=== PATIENT | female | born 1930 | race Caucasian/White ===

== ENCOUNTER 2017-10-13 08:09 | Inpatient (IN) | payer MEDICARE, OTHER ==
[~2017-10-13] VITALS: Ht 172.7 cm; Wt 75.0 kg
[2017-10-13] MEDS ORDERED: normal saline 1000ML IV soln IV ONE (08:55)
[2017-10-13] MEDS ORDERED: pantoprazole IV 80 MG in normal saline 100ml IV soln 100 ML IV ONE (08:55)
[2017-10-13] MEDS ORDERED: ondansetron/PF 4mg/2ml inj IV ONE (08:55)
[2017-10-13 09:32] LABS: BASOPHILS % (AUTO) 0.3 % (0-1); EOSINOPHILS # (AUTO) 0.2 X10'3 (0-0.9); EOSINOPHILS % (AUTO) 1.9 % (0-6); HEMATOCRIT 29.6 % (35.0-45.0); LYMPHOCYTES # (AUTO) 0.8 X10'3 (1.1-4.8); LYMPHOCYTES % (AUTO) 9.8 % (21-51); MEAN CORPUSCULAR HEMOGLOBIN 29.8 PG (27.0-31.0); MEAN CORPUSCULAR HGB CONC 33.8 % (33.0-36.5); MEAN CORPUSCULAR VOLUME 88.1 FL (78-98); MEAN PLATELET VOLUME 8.5 FL (7.4-10.4); MONOCYTES # (AUTO) 0.5 X10'3 (0-0.9); MONOCYTES % (AUTO) 5.4 % (2-12); NEUTROPHILS # (AUTO) 6.9 X10'3 (1.8-7.7); NEUTROPHILS % (AUTO) 82.6 % (42-75); PLATELET COUNT 305 X10'3 (140-440); RED BLOOD COUNT 3.36 X10'6 (4.20-5.60); RED CELL DISTRIBUTION WIDTH 13.9 % (11.5-14.5); WHITE BLOOD COUNT 8.3 X10'3 (4.5-11.0)
[2017-10-13 09:38] LABS: PARTIAL THROMBOPLASTIN TIME 22 SECONDS (22-32); PROTHROMBIN TIME 10.3 SECONDS (9.0-12.0)
[2017-10-13 09:42] LABS: ALANINE AMINOTRANSFERASE 22 U/L (12-78); ALBUMIN 3.5 G/DL (3.4-5.0); ALBUMIN/GLOBULIN RATIO 1.1 (1.1-1.5); ALKALINE PHOSPHATASE 50 IU/L (46-116); ANION GAP 9 (8-16); ASPARTATE AMINO TRANSFERASE 18 U/L (10-37); BILIRUBIN,TOTAL 0.7 MG/DL (0.1-1.0); BLOOD UREA NITROGEN 25 MG/DL (7-18); BUN/CREATININE RATIO 23.4 (6.6-38.0); CHLORIDE 103 MMOL/L (99-107); CREATININE 1.07 MG/DL (0.40-0.90); GLUCOSE 137 MG/DL (70-104); SODIUM 139 MMOL/L (135-145); TOTAL CARBON DIOXIDE 27.5 MMOL/L (24-32); TOTAL PROTEIN 6.6 G/DL (6.4-8.2); eGFR 49 ML/MIN
[2017-10-13 10:26] LABS: CLARITY,URINE CLEAR (Clear); COLOR,URINE STRAW (Yellow); GLUCOSE, URINE NEGATIVE (Neg); KETONES,URINE NEGATIVE (Neg); LEUKOCYTE ESTERASE ,URINE NEGATIVE (Neg); NITRITES, URINE NEGATIVE (Neg); OCCULT BLOOD,URINE NEGATIVE (Neg); PH,URINE 5.5 (4.8-8.0); PROTEIN,URINE NEGATIVE (Neg); UROBILINOGEN,URINE 0.2 E.U/dL (0.2-1.0)
[2017-10-13 10:27] LABS: UA COLLECTION TYPE STRAIGHT CATH
[2017-10-13] MEDS ORDERED: pantoprazole 40MG/NS 100ML BAG 100 ML IV ONE (10:30)
[2017-10-13] MEDS ORDERED: ondansetron/PF 4mg/2ml inj IV PRN (10:35)
[2017-10-13] MEDS ORDERED: magnesium Cl slow-release 64mg tablet PO PRN (10:35)
[2017-10-13] MEDS ORDERED: magnesium 2GM in 50ml NS 50 ML IV PRN (10:35)
[2017-10-13] MEDS ORDERED: potassium Cl 40MEQ/NS 500ml 500 ML IV PRN ×2 (10:35)
[2017-10-13] MEDS ORDERED: magnesium 4gm in 100ml NS 100 ML IV PRN (10:35)
[2017-10-13] MEDS ORDERED: potassium Cl 20 mEq SR tablet PO PRN ×2 (10:35)
[2017-10-13] MEDS ORDERED: pantoprazole 40MG/NS 100ML BAG 100 ML IV SCH (11:00)
[2017-10-13] MEDS ORDERED: NAPR-56 PO (11:51)
[2017-10-13] MEDS ORDERED: TIZA2TAB4 PO (11:52)
[2017-10-13] MEDS: pantoprazole IV 80 MG in dextrose 5%-water 100 ML IV SCH ×2 (13:30→22:00)
[2017-10-13] MEDS: sodium chloride 0.45% 1,000 ML IV SCH ×2 (13:38→22:01)
[2017-10-13 14:52] LABS: OCCULT BLOOD STOOL POSITIVE (Neg)
[2017-10-13 17:24] LABS: HEMATOCRIT 24.4 % (35.0-45.0); HEMOGLOBIN 8.4 g/dl (12.0-16.0); MEAN CORPUSCULAR HEMOGLOBIN 30.4 PG (27.0-31.0); MEAN CORPUSCULAR HGB CONC 34.4 % (33.0-36.5); MEAN CORPUSCULAR VOLUME 88.4 FL (78-98); MEAN PLATELET VOLUME 8.3 FL (7.4-10.4); PLATELET COUNT 297 X10'3 (140-440); RED BLOOD COUNT 2.76 X10'6 (4.20-5.60); RED CELL DISTRIBUTION WIDTH 14.6 % (11.5-14.5); WHITE BLOOD COUNT 10.7 X10'3 (4.5-11.0)
[2017-10-14] VITALS (8 sets, daily range): BP systolic 119–157; BP diastolic 58–80
[2017-10-14] MEDS: acetaminophen 325mg tablet PO PRN
[2017-10-14] MEDS ORDERED: Melatonin 3mg tablet PO PRN (00:10)
[2017-10-14] MEDS ORDERED: MORPHINE 2MG in 2ml NS syringe IV PRN (00:10)
[2017-10-14 06:24] LABS: BASOPHILS % (AUTO) 0.3 % (0-1); EOSINOPHILS # (AUTO) 0.4 X10'3 (0-0.9); EOSINOPHILS % (AUTO) 5.9 % (0-6); HEMOGLOBIN 7.4 g/dl (12.0-16.0); LYMPHOCYTES % (AUTO) 14.9 % (21-51); MEAN CORPUSCULAR HEMOGLOBIN 30.3 PG (27.0-31.0); MEAN CORPUSCULAR HGB CONC 34.3 % (33.0-36.5); MEAN CORPUSCULAR VOLUME 88.2 FL (78-98); MEAN PLATELET VOLUME 8.2 FL (7.4-10.4); MONOCYTES # (AUTO) 0.6 X10'3 (0-0.9); MONOCYTES % (AUTO) 8.7 % (2-12); NEUTROPHILS # (AUTO) 4.8 X10'3 (1.8-7.7); NEUTROPHILS % (AUTO) 70.2 % (42-75); PLATELET COUNT 241 X10'3 (140-440); RED BLOOD COUNT 2.44 X10'6 (4.20-5.60); RED CELL DISTRIBUTION WIDTH 14.3 % (11.5-14.5); WHITE BLOOD COUNT 6.9 X10'3 (4.5-11.0)
[2017-10-14 06:36] LABS: HEMATOCRIT 21.5 % (35.0-45.0)
[2017-10-14 06:40] LABS: ALBUMIN 2.9 G/DL (3.4-5.0); ANION GAP 8 (8-16); BLOOD UREA NITROGEN 22 MG/DL (7-18); BUN/CREATININE RATIO 23.4 (6.6-38.0); CALCIUM 8.6 MG/DL (8.5-10.1); CHLORIDE 108 MMOL/L (99-107); CREATININE 0.94 MG/DL (0.40-0.90); GLUCOSE 116 MG/DL (70-104); MAGNESIUM 1.9 MG/DL (1.5-2.4); POTASSIUM 4.7 MMOL/L (3.5-5.1); SODIUM 141 MMOL/L (135-145); TOTAL CARBON DIOXIDE 25.4 MMOL/L (24-32); eGFR 57 ML/MIN
[2017-10-14] MEDS: K and/or MAG REPLACEMENT MC SCH (08:00)
[2017-10-14] MEDS ORDERED: LORazepam 2 mg/ml vial IV ONE (08:00)
[2017-10-14] MEDS: sodium chloride 0.45% 1,000 ML IV SCH ×2 (08:42→21:04)
[2017-10-14] MEDS: pantoprazole IV 80 MG in dextrose 5%-water 100 ML IV SCH (08:42)
[2017-10-14] MEDS ORDERED: LORazepam 2 mg/ml vial IV PRN (08:50)
[2017-10-14 13:17] LABS: BASOPHILS % (AUTO) 0.3 % (0-1); EOSINOPHILS # (AUTO) 0.3 X10'3 (0-0.9); EOSINOPHILS % (AUTO) 3.3 % (0-6); HEMATOCRIT 22.2 % (35.0-45.0); HEMOGLOBIN 7.6 g/dl (12.0-16.0); LYMPHOCYTES # (AUTO) 1.3 X10'3 (1.1-4.8); LYMPHOCYTES % (AUTO) 15.3 % (21-51); MEAN CORPUSCULAR HEMOGLOBIN 30.3 PG (27.0-31.0); MEAN CORPUSCULAR HGB CONC 34.3 % (33.0-36.5); MEAN CORPUSCULAR VOLUME 88.3 FL (78-98); MEAN PLATELET VOLUME 8.4 FL (7.4-10.4); MONOCYTES # (AUTO) 0.7 X10'3 (0-0.9); MONOCYTES % (AUTO) 8.9 % (2-12); NEUTROPHILS % (AUTO) 72.2 % (42-75); PLATELET COUNT 250 X10'3 (140-440); RED BLOOD COUNT 2.52 X10'6 (4.20-5.60); RED CELL DISTRIBUTION WIDTH 14.8 % (11.5-14.5); WHITE BLOOD COUNT 8.3 X10'3 (4.5-11.0)
[2017-10-14] MEDS ORDERED: NO HOME MEDS (13:32)
[2017-10-14] MEDS ORDERED: MIDAZolam 5mg/5ml vial ONE (17:19)
[2017-10-14] MEDS ORDERED: LIDOcaine Viscous 15ml cup ONE (17:19)
[2017-10-14] MEDS ORDERED: fentaNYL/PF 50MCG/1 ML 2ML syringe ONE (17:19)
[2017-10-14] MEDS ORDERED: PEG 3350/Na sulf,bicarb,Cl/KCl oral sol 4 liter bottle PO ONE (19:20)
[2017-10-14] MEDS ORDERED: bisacodyl 5mg tablet.DR PO PRN (19:20)
[2017-10-14] MEDS: pantoprazole IV 80 MG in normal saline 100ml IV soln 100 ML IV SCH ×2 (21:04→23:21)
[2017-10-15] VITALS (9 sets, daily range): BP systolic 137–165; BP diastolic 60–83
[2017-10-15] MEDS: sodium chloride 0.45% 1,000 ML IV SCH ×3 (02:35→14:03)
[2017-10-15 06:35] LABS: BASOPHILS % (AUTO) 0.3 % (0-1); EOSINOPHILS # (AUTO) 0.4 X10'3 (0-0.9); EOSINOPHILS % (AUTO) 4.4 % (0-6); HEMOGLOBIN 7.2 g/dl (12.0-16.0); LYMPHOCYTES # (AUTO) 1.2 X10'3 (1.1-4.8); LYMPHOCYTES % (AUTO) 13.9 % (21-51); MEAN CORPUSCULAR HEMOGLOBIN 30.3 PG (27.0-31.0); MEAN CORPUSCULAR VOLUME 89.1 FL (78-98); MEAN PLATELET VOLUME 8.6 FL (7.4-10.4); MONOCYTES # (AUTO) 0.6 X10'3 (0-0.9); MONOCYTES % (AUTO) 7.6 % (2-12); NEUTROPHILS # (AUTO) 6.2 X10'3 (1.8-7.7); NEUTROPHILS % (AUTO) 73.8 % (42-75); PLATELET COUNT 238 X10'3 (140-440); RED BLOOD COUNT 2.37 X10'6 (4.20-5.60); RED CELL DISTRIBUTION WIDTH 14.3 % (11.5-14.5); WHITE BLOOD COUNT 8.4 X10'3 (4.5-11.0)
[2017-10-15 06:46] LABS: ANION GAP 9 (8-16); BLOOD UREA NITROGEN 18 MG/DL (7-18); BUN/CREATININE RATIO 21.2 (6.6-38.0); CALCIUM 8.6 MG/DL (8.5-10.1); CHLORIDE 108 MMOL/L (99-107); CREATININE 0.85 MG/DL (0.40-0.90); GLUCOSE 108 MG/DL (70-104); MAGNESIUM 1.9 MG/DL (1.5-2.4); POTASSIUM 3.5 MMOL/L (3.5-5.1); SODIUM 143 MMOL/L (135-145); TOTAL CARBON DIOXIDE 26.1 MMOL/L (24-32); eGFR 64 ML/MIN
[2017-10-15 06:53] LABS: HEMATOCRIT 21.1 % (35.0-45.0)
[2017-10-15] MEDS: K and/or MAG REPLACEMENT MC SCH (07:39)
[2017-10-15] MEDS: acetaminophen 325mg tablet PO PRN ×2 (08:12→13:58)
[2017-10-15] MEDS ORDERED: LORazepam 2 mg/ml vial IV ONE (09:50)
[2017-10-15] MEDS: pantoprazole IV 80 MG in normal saline 100ml IV soln 100 ML IV SCH (10:19)
[2017-10-15 13:04] LABS: BASOPHILS % (AUTO) 0 % (0-1); EOSINOPHILS # (AUTO) 0.3 X10'3 (0-0.9); EOSINOPHILS % (AUTO) 2.7 % (0-6); HEMATOCRIT 23.3 % (35.0-45.0); LYMPHOCYTES # (AUTO) 1.3 X10'3 (1.1-4.8); LYMPHOCYTES % (AUTO) 11.7 % (21-51); MEAN CORPUSCULAR HEMOGLOBIN 30.4 PG (27.0-31.0); MEAN CORPUSCULAR HGB CONC 34.4 % (33.0-36.5); MEAN CORPUSCULAR VOLUME 88.2 FL (78-98); MEAN PLATELET VOLUME 8.4 FL (7.4-10.4); MONOCYTES # (AUTO) 0.8 X10'3 (0-0.9); MONOCYTES % (AUTO) 7.1 % (2-12); NEUTROPHILS # (AUTO) 8.7 X10'3 (1.8-7.7); NEUTROPHILS % (AUTO) 78.5 % (42-75); PLATELET COUNT 292 X10'3 (140-440); RED BLOOD COUNT 2.64 X10'6 (4.20-5.60); RED CELL DISTRIBUTION WIDTH 14.3 % (11.5-14.5); WHITE BLOOD COUNT 11.1 X10'3 (4.5-11.0)
[2017-10-15] MEDS ORDERED: MIDAZolam 5mg/5ml vial ONE (16:43)
[2017-10-15] MEDS ORDERED: fentaNYL/PF 50MCG/1 ML 2ML syringe ONE ×2 (16:43→19:06)
[2017-10-16] VITALS (14 sets, daily range): BP systolic 126–176; BP diastolic 67–85
[2017-10-16] MEDS: pantoprazole IV 80 MG in normal saline 100ml IV soln 100 ML IV SCH (01:12)
[2017-10-16] MEDS: sodium chloride 0.45% 1,000 ML IV SCH (05:24)
[2017-10-16 05:45] LABS: BASOPHILS % (AUTO) 0.3 % (0-1); EOSINOPHILS # (AUTO) 0.3 X10'3 (0-0.9); EOSINOPHILS % (AUTO) 2.3 % (0-6); HEMOGLOBIN 7.3 g/dl (12.0-16.0); LYMPHOCYTES # (AUTO) 0.9 X10'3 (1.1-4.8); LYMPHOCYTES % (AUTO) 6.9 % (21-51); MEAN CORPUSCULAR HEMOGLOBIN 30.2 PG (27.0-31.0); MEAN CORPUSCULAR HGB CONC 34.1 % (33.0-36.5); MEAN CORPUSCULAR VOLUME 88.5 FL (78-98); MEAN PLATELET VOLUME 8.4 FL (7.4-10.4); MONOCYTES # (AUTO) 0.9 X10'3 (0-0.9); MONOCYTES % (AUTO) 6.8 % (2-12); NEUTROPHILS # (AUTO) 10.5 X10'3 (1.8-7.7); NEUTROPHILS % (AUTO) 83.7 % (42-75); PLATELET COUNT 255 X10'3 (140-440); RED BLOOD COUNT 2.42 X10'6 (4.20-5.60); RED CELL DISTRIBUTION WIDTH 14.1 % (11.5-14.5); WHITE BLOOD COUNT 12.6 X10'3 (4.5-11.0)
[2017-10-16 05:53] LABS: HEMATOCRIT 21.4 % (35.0-45.0)
[2017-10-16 06:05] LABS: ALBUMIN 3.1 G/DL (3.4-5.0); ANION GAP 11 (8-16); BLOOD UREA NITROGEN 7 MG/DL (7-18); BUN/CREATININE RATIO 8.9 (6.6-38.0); CALCIUM 8.5 MG/DL (8.5-10.1); CHLORIDE 105 MMOL/L (99-107); CREATININE 0.79 MG/DL (0.40-0.90); GLUCOSE 110 MG/DL (70-104); MAGNESIUM 1.6 MG/DL (1.5-2.4); SODIUM 143 MMOL/L (135-145); eGFR 69 ML/MIN
[2017-10-16] MEDS: K and/or MAG REPLACEMENT MC SCH (08:12)
[2017-10-16] MEDS ORDERED: furosemide 20 MG/2 ML vial IV ONE (08:55)
[2017-10-16] MEDS: ipratropium/albuterol 3ml nebule NEB SCH ×4 (11:12→23:20)
[2017-10-16] MEDS: acetaminophen 325mg tablet PO PRN (14:42)
[2017-10-16] MEDS ORDERED: magnesium 4gm in 100ml NS 100 ML IV PRN (14:55)
[2017-10-16] MEDS ORDERED: potassium Cl 40MEQ/NS 500ml 500 ML IV PRN ×2 (14:55)
[2017-10-16] MEDS ORDERED: potassium Cl 20 mEq SR tablet PO PRN (14:55)
[2017-10-16] MEDS ORDERED: magnesium 2GM in 50ml NS 50 ML IV PRN (14:55)
[2017-10-16] MEDS ORDERED: magnesium Cl slow-release 64mg tablet PO PRN (14:55)
[2017-10-16] MEDS: potassium Cl 20 mEq SR tablet PO PRN ×2 (15:06→19:39)
[2017-10-17] MEDS: ipratropium/albuterol 3ml nebule NEB SCH ×3 (02:57→12:48)
[2017-10-17 06:00] VITALS: BP 139/67
[2017-10-17 06:22] LABS: ALBUMIN 2.9 G/DL (3.4-5.0); ANION GAP 9 (8-16); BLOOD UREA NITROGEN 8 MG/DL (7-18); BUN/CREATININE RATIO 8.6 (6.6-38.0); CALCIUM 8.7 MG/DL (8.5-10.1); CHLORIDE 105 MMOL/L (99-107); CREATININE 0.93 MG/DL (0.40-0.90); GLUCOSE 149 MG/DL (70-104); MAGNESIUM 1.6 MG/DL (1.5-2.4); POTASSIUM 3.7 MMOL/L (3.5-5.1); SODIUM 140 MMOL/L (135-145); TOTAL CARBON DIOXIDE 26.4 MMOL/L (24-32); eGFR 57 ML/MIN
[2017-10-17 06:25] LABS: BASOPHILS % (AUTO) 0.2 % (0-1); EOSINOPHILS # (AUTO) 0.3 X10'3 (0-0.9); EOSINOPHILS % (AUTO) 2.4 % (0-6); HEMATOCRIT 25.3 % (35.0-45.0); HEMOGLOBIN 8.8 g/dl (12.0-16.0); LYMPHOCYTES # (AUTO) 0.9 X10'3 (1.1-4.8); LYMPHOCYTES % (AUTO) 6.9 % (21-51); MEAN CORPUSCULAR HEMOGLOBIN 30.6 PG (27.0-31.0); MEAN CORPUSCULAR HGB CONC 34.8 % (33.0-36.5); MEAN CORPUSCULAR VOLUME 87.8 FL (78-98); MEAN PLATELET VOLUME 8.3 FL (7.4-10.4); MONOCYTES # (AUTO) 0.9 X10'3 (0-0.9); MONOCYTES % (AUTO) 7.4 % (2-12); NEUTROPHILS # (AUTO) 10.6 X10'3 (1.8-7.7); NEUTROPHILS % (AUTO) 83.1 % (42-75); PLATELET COUNT 269 X10'3 (140-440); RED BLOOD COUNT 2.88 X10'6 (4.20-5.60); RED CELL DISTRIBUTION WIDTH 14.6 % (11.5-14.5); WHITE BLOOD COUNT 12.8 X10'3 (4.5-11.0)
[2017-10-17] MEDS: K and/or MAG REPLACEMENT MC SCH (08:00)
[2017-10-17] MEDS: acetaminophen 325mg tablet PO PRN (08:43)
[2017-10-17 10:00] VITALS: BP 166/74
[2017-10-17] MEDS ORDERED: cyclobenzaprine 10mg tablet PO ONE (12:40)
[2017-10-17] MEDS ORDERED: IPRA4AER IH (13:17)
== END 2017-10-17 16:30 | disposition home or self-care (01) | DRG 378 ==
LOC: ER 08:09 → ED HOLD 10:35 → ORTHO 4S 10-14 14:03
PROVIDERS: ADMIT Internal Medicine; ATTEND Emergency Medicine
PROC: 0DB68ZX Excision of Stomach, Via Natural or Artificial Opening Endoscopic, Diagnostic (ICD-10-PCS; principal; 2017-10-14)
PROC: 0DJD8ZZ Inspection of Lower Intestinal Tract, Via Natural or Artificial Opening Endoscopic (ICD-10-PCS; 2017-10-15)
PROC: 30233N1 Transfusion of Nonautologous Red Blood Cells into Peripheral Vein, Percutaneous Approach (ICD-10-PCS; 2017-10-16)
DX: K57.31 Diverticulosis of large intestine without perforation or abscess with bleeding (principal); D62 Acute posthemorrhagic anemia; J44.9 Chronic obstructive pulmonary disease, unspecified; K29.71 Gastritis, unspecified, with bleeding; E87.6 Hypokalemia; Z60.2 Problems related to living alone; M62.838 Other muscle spasm; K44.9 Diaphragmatic hernia without obstruction or gangrene; Z87.891 Personal history of nicotine dependence; Z90.710 Acquired absence of both cervix and uterus
CPT/HCPCS: 36415; 43239; 45378; 71045; 74176; 80048; 80053; 81003; 82272; 83735; 85025; 85027; 85610; 85730; 86885; 86900; 86901; 86920; 87070; 88305; 88342; 93306; 94640; 94760; 96365; 96375; 99285; A4310; A4344; A4620; A6449; C9113; G0500; J1940; J2060; J2250; J2405; J3010; J7030; J7060; P9016

== ENCOUNTER 2017-11-02 11:42 | Emergency (ER) | payer MEDICARE, OTHER ==
[~2017-11-02] VITALS: Ht 172.7 cm; Wt 78.2 kg
[~2017-11-02 11:42] MED LIST: IPRA4AER IH; NO HOME MEDS
[2017-11-02 12:40] LABS: ALBUMIN 3.7 G/DL (3.4-5.0); ALKALINE PHOSPHATASE 59 IU/L (46-116); ANION GAP 10 (8-16); ASPARTATE AMINO TRANSFERASE 15 U/L (10-37); BILIRUBIN,TOTAL 0.5 MG/DL (0.1-1.0); BLOOD UREA NITROGEN 22 MG/DL (7-18); BUN/CREATININE RATIO 18.3 (6.6-38.0); CALCIUM 9.9 MG/DL (8.5-10.1); CHLORIDE 98 MMOL/L (99-107); GLUCOSE 105 MG/DL (70-104); POTASSIUM 4.4 MMOL/L (3.5-5.1); SODIUM 134 MMOL/L (135-145); TOTAL CARBON DIOXIDE 26.4 MMOL/L (24-32); TOTAL PROTEIN 7.3 G/DL (6.4-8.2); eGFR 43 ML/MIN
[2017-11-02 12:47] LABS: BASOPHILS % (AUTO) 0.4 % (0-1); EOSINOPHILS # (AUTO) 0.2 X10'3 (0-0.9); EOSINOPHILS % (AUTO) 1.8 % (0-6); HEMOGLOBIN 10.8 g/dl (12.0-16.0); LYMPHOCYTES # (AUTO) 1.1 X10'3 (1.1-4.8); LYMPHOCYTES % (AUTO) 13.2 % (21-51); MEAN CORPUSCULAR HEMOGLOBIN 29.9 PG (27.0-31.0); MEAN CORPUSCULAR HGB CONC 33.6 % (33.0-36.5); MEAN PLATELET VOLUME 8.4 FL (7.4-10.4); MONOCYTES # (AUTO) 0.8 X10'3 (0-0.9); MONOCYTES % (AUTO) 9.7 % (2-12); NEUTROPHILS # (AUTO) 6.2 X10'3 (1.8-7.7); NEUTROPHILS % (AUTO) 74.9 % (42-75); PLATELET COUNT 404 X10'3 (140-440); RED CELL DISTRIBUTION WIDTH 14.4 % (11.5-14.5); WHITE BLOOD COUNT 8.3 X10'3 (4.5-11.0)
[2017-11-02 13:38] LABS: ALANINE AMINOTRANSFERASE 22 U/L (12-78)
[2017-11-02] MEDS ORDERED: normal saline 1000ML IV soln IVB ONE (14:05)
[2017-11-02] MEDS ORDERED: pantoprazole IV 80 MG in normal saline 100ml IV soln 100 ML IV ONE (14:05)
[2017-11-02 14:33] LABS: CLARITY,URINE CLOUDY (Clear); COLOR,URINE STRAW (Yellow); GLUCOSE, URINE NEGATIVE (Neg); KETONES,URINE NEGATIVE (Neg); LEUKOCYTE ESTERASE ,URINE LARGE (Neg); NITRITES, URINE NEGATIVE (Neg); OCCULT BLOOD,URINE SMALL (Neg); PROTEIN,URINE TRACE mg/dl (Neg); UROBILINOGEN,URINE 0.2 E.U/dL (0.2-1.0)
[2017-11-02 14:34] LABS: UA COLLECTION TYPE CLN CATCH MIDSTREAM
[2017-11-02] MEDS: pantoprazole 40MG/NS 100ML BAG 100 ML IV SCH ×2 (14:38→15:12)
[2017-11-02 14:44] VITALS: BP 130/64
[2017-11-02 14:44] LABS: HEMATOCRIT 32.2 % (35.0-45.0); HEMOGLOBIN 10.8 g/dl (12.0-16.0); MEAN CORPUSCULAR HEMOGLOBIN 29.9 PG (27.0-31.0); MEAN CORPUSCULAR HGB CONC 33.5 % (33.0-36.5); MEAN CORPUSCULAR VOLUME 89.3 FL (78-98); MEAN PLATELET VOLUME 8.3 FL (7.4-10.4); PLATELET COUNT 399 X10'3 (140-440); RED BLOOD COUNT 3.61 X10'6 (4.20-5.60); RED CELL DISTRIBUTION WIDTH 14.8 % (11.5-14.5); WHITE BLOOD COUNT 8.5 X10'3 (4.5-11.0)
[2017-11-02 14:46] LABS: BACTERIA,URINE 2+ /HPF (Neg); RBC,URINE 0-2 /HPF (0-2); SQUAMOUS EPITHELIAL CELL,UR MODERATE /LPF (FEW); WBC,URINE TNTC /HPF (0-4)
[2017-11-02 14:47] LABS: MUCUS STRANDS NONE SEEN /LPF (Neg)
[2017-11-02] MEDS ORDERED: BACDS PO (14:52)
[2017-11-02] MEDS ORDERED: sulfamethoxazole/trimethoprim DS (800/160mg) tablet PO ONE (14:55)
== END 2017-11-02 22:39 | disposition home or self-care (01) ==
LOC: ER 11:43
DX: N39.0 Urinary tract infection, site not specified (principal); J44.9 Chronic obstructive pulmonary disease, unspecified
CPT/HCPCS: 36415; 80053; 81001; 85025; 85027; 85610; 86885; 86900; 86901; 87077; 87088; 87186; 96365; 99285; C9113; J7030

== ENCOUNTER 2017-11-23 14:27 | Inpatient (IN) | payer MEDICARE, OTHER ==
[~2017-11-23] VITALS: Ht 172.7 cm; Wt 72.0 kg
[~2017-11-23 14:27] MED LIST changes: -IPRA4AER IH
[2017-11-23 15:12] LABS: BASOPHILS % (AUTO) 0.5 % (0-1); EOSINOPHILS # (AUTO) 0.2 X10'3 (0-0.9); HEMATOCRIT 30.6 % (35.0-45.0); HEMOGLOBIN 10.2 g/dl (12.0-16.0); LYMPHOCYTES # (AUTO) 1.3 X10'3 (1.1-4.8); LYMPHOCYTES % (AUTO) 20.3 % (21-51); MEAN CORPUSCULAR HEMOGLOBIN 29.4 PG (27.0-31.0); MEAN CORPUSCULAR HGB CONC 33.4 % (33.0-36.5); MEAN CORPUSCULAR VOLUME 88.1 FL (78-98); MEAN PLATELET VOLUME 7.7 FL (7.4-10.4); MONOCYTES # (AUTO) 0.8 X10'3 (0-0.9); MONOCYTES % (AUTO) 12.5 % (2-12); NEUTROPHILS # (AUTO) 4.2 X10'3 (1.8-7.7); NEUTROPHILS % (AUTO) 63.7 % (42-75); PLATELET COUNT 358 X10'3 (140-440); RED BLOOD COUNT 3.48 X10'6 (4.20-5.60); RED CELL DISTRIBUTION WIDTH 14.9 % (11.5-14.5); WHITE BLOOD COUNT 6.5 X10'3 (4.5-11.0)
[2017-11-23 15:23] LABS: PARTIAL THROMBOPLASTIN TIME 26 SECONDS (22-32)
[2017-11-23 15:26] LABS: ALANINE AMINOTRANSFERASE 20 U/L (12-78); ALBUMIN 3.4 G/DL (3.4-5.0); ALBUMIN/GLOBULIN RATIO 0.9 (1.1-1.5); ALKALINE PHOSPHATASE 62 IU/L (46-116); ANION GAP 7 (8-16); ASPARTATE AMINO TRANSFERASE 17 U/L (10-37); BILIRUBIN,TOTAL 0.4 MG/DL (0.1-1.0); BLOOD UREA NITROGEN 18 MG/DL (7-18); BUN/CREATININE RATIO 18.9 (6.6-38.0); CALCIUM 9.5 MG/DL (8.5-10.1); CHLORIDE 99 MMOL/L (99-107); CREATININE 0.95 MG/DL (0.40-0.90); GLUCOSE 97 MG/DL (70-104); POTASSIUM 3.9 MMOL/L (3.5-5.1); SODIUM 135 MMOL/L (135-145); TOTAL CARBON DIOXIDE 28.9 MMOL/L (24-32); eGFR 56 ML/MIN
[2017-11-23] MEDS ORDERED: aspirin 81mg tab.chew PO ONE ×2 (16:10→16:15)
[2017-11-23] MEDS ORDERED: ondansetron/PF 4mg/2ml inj IV PRN (16:25)
[2017-11-23] MEDS ORDERED: mag hydrox/Alum hydrox/simeth 30ml oral suspension PO PRN (16:25)
[2017-11-23] MEDS ORDERED: acetaminophen 325mg tablet PO PRN (16:25)
[2017-11-23] MEDS ORDERED: morphine 4 MG/ML inj SYRINge IV PRN ×2 (16:25)
[2017-11-23 17:22] LABS: D-DIMER 1.59 MG/L FEU (0-0.50)
[2017-11-23] MEDS: CefTRIAXone/D5W-Rocephin 1gm 50 ML IV SCH (18:24)
[2017-11-23 19:24] LABS: CLARITY,URINE Turbid (Clear); COLOR,URINE Yellow (Yellow); GLUCOSE, URINE Negative (Neg); KETONES,URINE Negative (Neg); LEUKOCYTE ESTERASE ,URINE Large (Neg); NITRITES, URINE Negative (Neg); OCCULT BLOOD,URINE Small (Neg); PROTEIN,URINE Trace mg/dl (Neg); UROBILINOGEN,URINE 0.2 E.U/dL (0.2-1.0)
[2017-11-23 19:26] LABS: UA COLLECTION TYPE CLN CATCH MIDSTREAM
[2017-11-23 19:42] LABS: BACTERIA,URINE 4+ /HPF (Neg); WBC,URINE TNTC /HPF (0-4)
[2017-11-23 19:43] LABS: SQUAMOUS EPITHELIAL CELL,UR NONE SEEN /LPF (FEW)
[2017-11-23 20:00] VITALS: BP 169/80
[2017-11-23] MEDS ORDERED: hydrALAZINE 20mg/ml inj. IV PRN (20:55)
[2017-11-23] MEDS: magnesium hydroxide 30ml (MOM) UD suspension PO PRN (21:07)
[2017-11-23] MEDS ORDERED: pneumococcal 23-VAL P-sac vacc 25 mcg/0.5ml vial IMVAC ONE (22:15)
[2017-11-23 23:00] VITALS: BP 136/79
[2017-11-24] VITALS (13 sets, daily range): BP systolic 102–164; BP diastolic 61–82
[2017-11-24 03:55] LABS: ALBUMIN 3.5 G/DL (3.4-5.0); ANION GAP 9 (8-16); BLOOD UREA NITROGEN 17 MG/DL (7-18); BUN/CREATININE RATIO 19.1 (6.6-38.0); CALCIUM 9.6 MG/DL (8.5-10.1); CHLORIDE 101 MMOL/L (99-107); CHOL/HDL RATIO 2.9 (0.00-4.99); CHOLESTEROL 194 MG/DL (0-200); CREATININE 0.89 MG/DL (0.40-0.90); GLUCOSE 124 MG/DL (70-104); HDL CHOLESTEROL 66 MG/DL (35-60); LDL CHOLESTEROL 112 MG/DL (50-100); POTASSIUM 4.2 MMOL/L (3.5-5.1); SODIUM 137 MMOL/L (135-145); TOTAL CARBON DIOXIDE 26.8 MMOL/L (24-32); TRIGLYCERIDES 61 MG/DL (20-135); eGFR 60 ML/MIN
[2017-11-24 06:11] LABS: BASOPHILS % (AUTO) 0.3 % (0-1); EOSINOPHILS # (AUTO) 0.2 X10'3 (0-0.9); EOSINOPHILS % (AUTO) 2.9 % (0-6); HEMOGLOBIN 10.6 g/dl (12.0-16.0); LYMPHOCYTES # (AUTO) 1.1 X10'3 (1.1-4.8); LYMPHOCYTES % (AUTO) 15.6 % (21-51); MEAN CORPUSCULAR HEMOGLOBIN 29.6 PG (27.0-31.0); MEAN CORPUSCULAR HGB CONC 33.2 % (33.0-36.5); MEAN CORPUSCULAR VOLUME 89.1 FL (78-98); MEAN PLATELET VOLUME 8.3 FL (7.4-10.4); MONOCYTES # (AUTO) 0.8 X10'3 (0-0.9); NEUTROPHILS # (AUTO) 4.7 X10'3 (1.8-7.7); NEUTROPHILS % (AUTO) 69.2 % (42-75); PLATELET COUNT 338 X10'3 (140-440); RED BLOOD COUNT 3.59 X10'6 (4.20-5.60); RED CELL DISTRIBUTION WIDTH 14.7 % (11.5-14.5); WHITE BLOOD COUNT 6.9 X10'3 (4.5-11.0)
[2017-11-24] MEDS: enoxaparin 40mg/0.4ml syringe SUBCUT SCH (08:09)
[2017-11-24] MEDS: CefTRIAXone/D5W-Rocephin 1gm 50 ML IV SCH (08:09)
[2017-11-24] MEDS ORDERED: CAFFEINE CITRATE 60 MG/3 ML injection vial IV PRN (09:40)
[2017-11-24] MEDS ORDERED: metoprolol tartrate 1mg/ml inj IV PRN (09:40)
[2017-11-24] MEDS ORDERED: regadenoson 0.4mg/5ml syringe IV ONE ×2 (09:40→11:51)
[2017-11-24] MEDS ORDERED: nitroGLYCERIN 0.4mg SUBLingual tab SL PRN (09:40)
[2017-11-24] MEDS ORDERED: CAFFEINE CITRATE 60 MG/3 ML injection vial IV ONE (11:50)
[2017-11-24] MEDS: carVEDilol 12.5mg tablet PO SCH (19:56)
[2017-11-24] MEDS: lactobacillus rhamnosus 10,000 MMU CELLS/CAPSULE PO SCH (19:58)
[2017-11-24] MEDS: magnesium hydroxide 30ml (MOM) UD suspension PO PRN (19:58)
[2017-11-25 03:00] VITALS: BP 121/61
[2017-11-25] MEDS ORDERED: furosemide 20 MG/2 ML vial IV ONE (05:15)
[2017-11-25] MEDS ORDERED: albuterol 2.5 MG/3 ML nebule NEB ONE (05:15)
[2017-11-25 06:05] LABS: BASOPHILS % (AUTO) 0.5 % (0-1); EOSINOPHILS # (AUTO) 0.2 X10'3 (0-0.9); EOSINOPHILS % (AUTO) 3.6 % (0-6); HEMATOCRIT 31.4 % (35.0-45.0); HEMOGLOBIN 10.5 g/dl (12.0-16.0); LYMPHOCYTES # (AUTO) 1.2 X10'3 (1.1-4.8); LYMPHOCYTES % (AUTO) 18.2 % (21-51); MEAN CORPUSCULAR HEMOGLOBIN 29.6 PG (27.0-31.0); MEAN CORPUSCULAR HGB CONC 33.6 % (33.0-36.5); MEAN CORPUSCULAR VOLUME 88.3 FL (78-98); MEAN PLATELET VOLUME 8.3 FL (7.4-10.4); MONOCYTES # (AUTO) 0.8 X10'3 (0-0.9); NEUTROPHILS # (AUTO) 4.4 X10'3 (1.8-7.7); NEUTROPHILS % (AUTO) 65.7 % (42-75); PLATELET COUNT 342 X10'3 (140-440); RED BLOOD COUNT 3.56 X10'6 (4.20-5.60); RED CELL DISTRIBUTION WIDTH 14.8 % (11.5-14.5); WHITE BLOOD COUNT 6.7 X10'3 (4.5-11.0)
[2017-11-25 07:00] VITALS: BP 138/67
[2017-11-25 07:08] LABS: ALBUMIN 3.3 G/DL (3.4-5.0); ANION GAP 7 (8-16); BLOOD UREA NITROGEN 19 MG/DL (7-18); BUN/CREATININE RATIO 18.6 (6.6-38.0); CALCIUM 9.3 MG/DL (8.5-10.1); CHLORIDE 100 MMOL/L (99-107); CREATININE 1.02 MG/DL (0.40-0.90); GLUCOSE 117 MG/DL (70-104); POTASSIUM 4.2 MMOL/L (3.5-5.1); SODIUM 135 MMOL/L (135-145); TOTAL CARBON DIOXIDE 28.1 MMOL/L (24-32); TROPONIN I < 0.04 NG/ML (0.0-0.05); eGFR 52 ML/MIN
[2017-11-25] MEDS: enoxaparin 40mg/0.4ml syringe SUBCUT SCH (08:00)
[2017-11-25] MEDS ORDERED: aspirin 325mg tablet PO SCH (08:30)
[2017-11-25] MEDS: lactobacillus rhamnosus 10,000 MMU CELLS/CAPSULE PO SCH (08:41)
[2017-11-25] MEDS: carVEDilol 12.5mg tablet PO SCH (08:41)
[2017-11-25] MEDS: CefTRIAXone/D5W-Rocephin 1gm 50 ML IV SCH (08:42)
[2017-11-25] MEDS ORDERED: CARV-50 PO (08:47)
[2017-11-25] MEDS ORDERED: PANT40TA4 PO (08:47)
[2017-11-25] MEDS ORDERED: LACT1CAP26 PO (08:47)
[2017-11-25] MEDS ORDERED: LEVO500T89 PO (08:47)
[2017-11-25] MEDS ORDERED: ASPI-1 PO (08:47)
[2017-11-25 11:00] VITALS: BP 116/51
== END 2017-11-25 14:20 | disposition home or self-care (01) | DRG 392 ==
LOC: ER 14:27 → ED HOLD 16:21 → EDBEDREQ 19:07 → PCU 3S 19:29
PROVIDERS: ADMIT Internal Medicine; ATTEND Family Medicine
PROC: 4A02XM4 Measurement of Cardiac Total Activity, External Approach (ICD-10-PCS; principal; 2017-11-24)
PROC: 3E073KZ Introduction of Other Diagnostic Substance into Coronary Artery, Percutaneous Approach (ICD-10-PCS; 2017-11-24)
DX: K21.9 Gastro-esophageal reflux disease without esophagitis (principal); J44.9 Chronic obstructive pulmonary disease, unspecified; D64.9 Anemia, unspecified; N39.0 Urinary tract infection, site not specified; N18.3 Chronic kidney disease, stage 3 (moderate); B96.20 Unspecified Escherichia coli [E. coli] as the cause of diseases classified elsewhere; Z79.82 Long term (current) use of aspirin; Z87.891 Personal history of nicotine dependence; Z90.49 Acquired absence of other specified parts of digestive tract; Z23 Encounter for immunization; Z90.710 Acquired absence of both cervix and uterus
CPT/HCPCS: 36415; 71045; 78452; 80048; 80053; 80061; 81001; 83880; 84484; 85025; 85379; 85610; 85730; 87070; 87077; 87088; 87186; 93005; 93017; 94640; 99285; A9500; J0360; J0696; J1650; J1940; J2405; J7030

== ENCOUNTER 2019-09-18 09:31 | Emergency (ER) | payer MEDICARE, OTHER ==
[~2019-09-18] VITALS: Ht 170.2 cm; Wt 70.5 kg
[~2019-09-18 09:31] MED LIST changes: +ASPI-1 PO; +CARV-50 PO; +COLC0.6T69 PO; +LACT1CAP26 PO; -NO HOME MEDS; +PANT40TA4 PO
[2019-09-18 13:02] LABS: BASOPHILS # (AUTO) 0.1 X10'3 (0-0.2); BASOPHILS % (AUTO) 0.6 % (0-1); EOSINOPHILS # (AUTO) 0.1 X10'3 (0-0.9); EOSINOPHILS % (AUTO) 0.8 % (0-6); HEMATOCRIT 36.9 % (35.0-45.0); HEMOGLOBIN 12.6 g/dl (12.0-16.0); LYMPHOCYTES % (AUTO) 10.7 % (21-51); MEAN CORPUSCULAR HEMOGLOBIN 30.2 PG (27.0-31.0); MEAN CORPUSCULAR HGB CONC 34.1 g/dL (33.0-36.5); MEAN CORPUSCULAR VOLUME 88.5 FL (78-98); MEAN PLATELET VOLUME 8.6 FL (7.4-10.4); MONOCYTES # (AUTO) 0.9 X10'3 (0-0.9); NEUTROPHILS # (AUTO) 7.3 X10'3 (1.8-7.7); NEUTROPHILS % (AUTO) 77.9 % (42-75); PLATELET COUNT 307 X10'3 (140-440); RED BLOOD COUNT 4.17 X10'6 (4.20-5.60); RED CELL DISTRIBUTION WIDTH 14.5 % (11.5-14.5); WHITE BLOOD COUNT 9.4 X10'3 (4.5-11.0)
[2019-09-18 13:17] LABS: ALANINE AMINOTRANSFERASE 23 U/L (12-78); ALBUMIN 3.8 G/DL (3.4-5.0); ALBUMIN/GLOBULIN RATIO 1.1 (1.1-1.5); ALKALINE PHOSPHATASE 47 IU/L (46-116); ANION GAP 8 (8-16); ASPARTATE AMINO TRANSFERASE 31 U/L (10-37); BILIRUBIN,TOTAL 0.8 MG/DL (0.1-1.0); BLOOD UREA NITROGEN 16 MG/DL (7-18); BUN/CREATININE RATIO 15.8 (6.6-38.0); CALCIUM 9.9 MG/DL (8.5-10.1); CHLORIDE 99 MMOL/L (99-107); CREATININE 1.01 MG/DL (0.40-0.90); GLUCOSE 102 MG/DL (70-104); POTASSIUM 3.6 MMOL/L (3.5-5.1); SODIUM 135 MMOL/L (135-145); TOTAL CARBON DIOXIDE 28.3 MMOL/L (24-32); TOTAL PROTEIN 7.4 G/DL (6.4-8.2); eGFR 52 ML/MIN
[2019-09-18] MEDS ORDERED: BISA10SU60 RC (14:00)
[2019-09-18] MEDS ORDERED: DOCU-171 PO (14:00)
[2019-09-18 14:13] VITALS: BP 163/83
== END 2019-09-18 14:26 | disposition home or self-care (01) ==
LOC: ER 09:31
DX: K59.00 Constipation, unspecified (principal); F03.90 Unspecified dementia, unspecified severity, without behavioral disturbance, psychotic disturbance, mood disturbance, and anxiety; J44.9 Chronic obstructive pulmonary disease, unspecified; M19.90 Unspecified osteoarthritis, unspecified site; Z79.82 Long term (current) use of aspirin; Z79.899 Other long term (current) drug therapy
CPT/HCPCS: 36415; 74018; 80053; 85025; 99284

== ENCOUNTER 2019-09-20 12:08 | Emergency (ER) | payer MEDICARE, OTHER ==
[~2019-09-20] VITALS: Ht 170.2 cm; Wt 72.3 kg
[~2019-09-20 12:08] MED LIST changes: +BISA10SU60 RC; +DOCU-171 PO
[2019-09-20] MEDS ORDERED: normal saline 1000ML IV soln IVB ONE (14:20)
[2019-09-20] MEDS ORDERED: hydrocort. acetate/pramoxine 10gm bottle RC PRN (14:20)
[2019-09-20 14:40] LABS: BASOPHILS % (AUTO) 0.3 % (0-1); EOSINOPHILS # (AUTO) 0.1 X10'3 (0-0.9); EOSINOPHILS % (AUTO) 0.5 % (0-6); HEMATOCRIT 36.9 % (35.0-45.0); HEMOGLOBIN 12.6 g/dl (12.0-16.0); LYMPHOCYTES # (AUTO) 0.9 X10'3 (1.1-4.8); LYMPHOCYTES % (AUTO) 7.6 % (21-51); MEAN CORPUSCULAR HEMOGLOBIN 29.9 PG (27.0-31.0); MEAN PLATELET VOLUME 8.6 FL (7.4-10.4); MONOCYTES # (AUTO) 1.1 X10'3 (0-0.9); MONOCYTES % (AUTO) 9.4 % (2-12); NEUTROPHILS # (AUTO) 9.3 X10'3 (1.8-7.7); NEUTROPHILS % (AUTO) 82.2 % (42-75); PLATELET COUNT 314 X10'3 (140-440); RED CELL DISTRIBUTION WIDTH 14.4 % (11.5-14.5); WHITE BLOOD COUNT 11.3 X10'3 (4.5-11.0)
[2019-09-20 14:48] LABS: ALBUMIN 3.5 G/DL (3.4-5.0); ANION GAP 6 (8-16); BLOOD UREA NITROGEN 16 MG/DL (7-18); BUN/CREATININE RATIO 16.3 (6.6-38.0); CALCIUM 9.6 MG/DL (8.5-10.1); CHLORIDE 96 MMOL/L (99-107); CREATININE 0.98 MG/DL (0.40-0.90); GLUCOSE 99 MG/DL (70-104); POTASSIUM 3.6 MMOL/L (3.5-5.1); SODIUM 132 MMOL/L (135-145); TOTAL CARBON DIOXIDE 29.7 MMOL/L (24-32); eGFR 54 ML/MIN
[2019-09-20 15:27] LABS: CLARITY,URINE CLEAR (Clear); COLOR,URINE YELLOW (Yellow); GLUCOSE, URINE NEGATIVE (Neg); KETONES,URINE 15 mg/dl (Neg); LEUKOCYTE ESTERASE ,URINE NEGATIVE (Neg); NITRITES, URINE NEGATIVE (Neg); OCCULT BLOOD,URINE NEGATIVE (Neg); PROTEIN,URINE TRACE mg/dl (Neg); UROBILINOGEN,URINE 0.2 E.U/dL (0.2-1.0)
[2019-09-20 15:28] LABS: UA COLLECTION TYPE STRAIGHT CATH
[2019-09-20 15:32] LABS: MUCUS STRANDS FEW /LPF (Neg); SQUAMOUS EPITHELIAL CELL,UR FEW /LPF (FEW)
[2019-09-20 15:33] LABS: BACTERIA,URINE FEW /HPF (Neg); RBC,URINE 0-2 /HPF (0-2); WBC,URINE 0-4 /HPF (0-4)
[2019-09-20] MEDS ORDERED: iohexol 300mg/ml 100ml inj. ONE (16:12)
--- NOTE | 2019-09-20 19:41 | NUR ---
Pt returned from [facility]. pt back on the [facility] to have another large loose darm brown bm. Pt a&ox3. daughter at bedside. bp 181/53, no pain. abd remains distended.
--- NOTE | 2019-09-20 21:07 | NUR ---
dr fu talking with pt and daughter about dc. solomon cath to be place and then dc.
[2019-09-20 22:04] VITALS: BP 147/77
--- NOTE | 2019-09-20 23:16 | NUR ---
after placement of solomon, no urine out, after 1 hr the bag had 1300 out
== END 2019-09-20 23:30 | disposition home or self-care (01) ==
LOC: ER 12:08
DX: K59.00 Constipation, unspecified (principal); R33.9 Retention of urine, unspecified; R10.30 Lower abdominal pain, unspecified; K64.9 Unspecified hemorrhoids; K62.89 Other specified diseases of anus and rectum; F03.90 Unspecified dementia, unspecified severity, without behavioral disturbance, psychotic disturbance, mood disturbance, and anxiety; J44.9 Chronic obstructive pulmonary disease, unspecified; M19.90 Unspecified osteoarthritis, unspecified site; Z87.891 Personal history of nicotine dependence; Z79.82 Long term (current) use of aspirin; Z79.899 Other long term (current) drug therapy
CPT/HCPCS: 36415; 74177; 80048; 81001; 85025; 99285; J7030; Q9967

== ENCOUNTER 2019-09-21 13:39 | Emergency (ER) | payer MEDICARE, OTHER ==
[~2019-09-21] VITALS: Ht 170.2 cm; Wt 72.7 kg
[2019-09-21 14:55] VITALS: BP 142/55
--- NOTE | 2019-09-21 15:55 | NUR ---
Pt requesting removal of Beaulieu catheter. Stated itching and "irritation" at site of catheter.
--- NOTE | 2019-09-21 17:00 | NUR ---
Discontinued pt's Beaulieu catheter. 10mL NS drained from balloon, catheter intact upon removal.
== END 2019-09-21 17:55 | disposition home or self-care (01) ==
LOC: ER 13:39
DX: Z46.6 Encounter for fitting and adjustment of urinary device (principal); F03.90 Unspecified dementia, unspecified severity, without behavioral disturbance, psychotic disturbance, mood disturbance, and anxiety; J44.9 Chronic obstructive pulmonary disease, unspecified; M19.90 Unspecified osteoarthritis, unspecified site; Z79.82 Long term (current) use of aspirin; Z79.899 Other long term (current) drug therapy
CPT/HCPCS: 99281